=== PATIENT | female | born 1975 | race Caucasian/White ===

== ENCOUNTER 2018-01-28 10:33 | Day surgery (SDC) | payer OTHER | END 2018-01-28 17:10 | disposition home or self-care (01) | LOC: CIR.AMB 10:33 | DX: N84.0 Polyp of corpus uteri (principal) ==

== ENCOUNTER 2018-05-05 14:26 | Emergency (ER) | payer OTHER ==
[~2018-05-05] VITALS: Ht 165.1 cm; Wt 68.5 kg
== END 2018-05-05 16:47 | disposition home or self-care (01) ==
LOC: ER 14:26
DX: K64.8 Other hemorrhoids (principal)